=== PATIENT | female | born 1955 | race Caucasian/White ===

== ENCOUNTER 2021-01-28 19:37 | Inpatient (IN) ==
[2021-01-28] MEDS ORDERED: IOPAMIDOL 100 ML BOTTLE IV ONE (19:38)
[2021-01-28] MEDS ORDERED: ACETAMINOPHEN 325 MG TABLET PO ONE (19:53)
[2021-01-28] MEDS ORDERED: 0.9 % SODIUM CHLORIDE 500 ML IV ONE ×2 (19:53→21:24)
[2021-01-28] MEDS ORDERED: ALBUTEROL SULFATE 200 PUFF INHALER INH ONE (19:53)
--- NOTE | 2021-01-28 20:12 | XRay Report ---
CLINICAL INFORMATION: COVID COMPARISON: 01/21/2021 FINDINGS: Heart size is normal for technique. Mediastinum and pulmonary vessels are normal. Small solid aided right basilar infiltrate and effusion noted. IMPRESSION: Small right basilar infiltrate and small effusion. Interpreted and Authenticated by: Skip Kirk 01/28/21
--- NOTE | 2021-01-28 20:42 | Emergency Department Note ---
HPI General Chief complaint: Cold/Flu Symptoms Stated complaint: cold symptoms Time Seen by Provider: 01/28/21 19:46 Source: family Mode of arrival: wheelchair Limitations: no limitations History of Present Illness HPI Narrative: Narrative: Patient with a history of psoriatic arthritis on Humira and known COVID-19 since the end of December presenting to the ED with overall feeling worse for the past 1 to 2 days. Also some ear pain bilaterally right greater than left, and some increased shortness of breath. Has a history of sleep apnea but no known chronic lung disease, no chest pain. Does endorse fevers cough. No chest pain. No other acute complaints. Related Data Home Medications Medication Instructions Recorded Confirmed ascorbic acid (vitamin C) 500 mg 500 mg PO ONCE cap 12/24/18 01/28/21 capsule,extended release cholecalciferol (vitamin D3) 25 1,000 unit PO ONCE cap 12/24/18 01/28/21 mcg (1,000 unit) capsule duloxetine 60 mg capsule,delayed 60 mg PO QAM cap 12/24/18 01/28/21 release ferrous sulfate 325 mg (65 mg 325 mg PO ONCE tab 12/24/18 01/28/21 iron) tablet levothyroxine 150 mcg capsule 150 mcg PO QDAY cap 12/24/18 01/28/21 losartan 100 mg tablet 100 mg PO QDAY 12/24/18 01/28/21 metoprolol succinate 100 mg 100 mg PO QAM each 12/24/18 01/28/21 capsule sprinkle, ext. release 24 hr sitagliptin 50 mg tablet 50 mg PO BID tab 12/24/18 01/28/21 Saccharomyces boulardii 250 mg 250 mg PO BID 12/27/18 01/28/21 capsule diclofenac sodium 1 % topical gel 4 g TOPICAL QID 12/27/18 01/28/21 lidocaine 5 % topical patch 1 patch TOPICAL QDAY 12/27/18 01/28/21 liraglutide 0.6 mg/0.1 mL (18 mg/3 1.8 mg SUB-Q ONCE ml 12/27/18 01/28/21 mL) subcutaneous pen injector spironolactone 25 mg tablet 25 mg PO QDAY 12/27/18 01/28/21 metformin 1,000 mg tablet,extended 1,000 mg PO BID tab 12/26/19 09/10/21 release 24hr insulin glargine 100 unit/mL 45 unit SUB-Q BID ml 01/04/21 01/28/21 subcutaneous solution Previous Rx's Medication Instructions Recorded adalimumab 40 mg/0.4 mL See Rx Instructions .ROUTE 08/06/20 subcutaneous pen kit .COMPLEX #2 kit Allergies Allergy/AdvReac Type Severity Reaction Status Date / Time codeine Allergy Severe Muscle Pain Verified 01/12/21 15:51 etodolac Allergy Severe Muscle Pain Verified 01/12/21 15:51 morphine Allergy Severe Muscle Pain Verified 01/12/21 15:51 Penicillins Allergy Severe Muscle Pain Verified 01/12/21 15:51 Quinolones Allergy Severe Muscle Pain Verified 01/12/21 15:51 Sulfa (Sulfonamide Allergy Severe Muscle Pain Verified 01/12/21 15:51 Antibiotics) bupivacaine Allergy Unknown Other Verified 01/12/21 15:51 celecoxib [From Celebrex] Allergy Unknown Other Verified 01/12/21 15:51 ciprofloxacin [From Cipro] Allergy Unknown Other Verified 01/12/21 15:51 clindamycin Allergy Unknown Other Verified 01/12/21 15:51 hydromorphone Allergy Unknown Nausea Verified 01/12/21 15:51 moxifloxacin Allergy Unknown Other Verified 01/12/21 15:51 oxycodone [From Percocet] Allergy Unknown Nausea Verified 01/12/21 15:51 Tizanidine Allergy Unknown Nausea Verified 01/12/21 15:51 tramadol Allergy Unknown Nausea Verified 01/12/21 15:51 Review of Systems ROS ROS Narrative: Narrative: At least 10 systems reviewed and otherwise acutely negative except as in the HPI PFSH Narrative Patient History Narrative: Narrative: Medical/Surgical/Family History All Active Problems (Updated 01/29/21 @ 00:02 by Sergio Berger MD) Essential (primary) hypertension (Acute) Anemia, normocytic normochromic (Acute) Community acquired pneumonia (Acute) Uncontrolled type 2 diabetes mellitus with hyperglycemia (Acute) Lumbar back pain (Chronic) Type 2 diabetes mellitus (Chronic) Psoriatic arthropathy (Acute) Osteoarthritis (Chronic) Pain of multiple sites (Chronic) Other halfway (current) drug therapy (Chronic) Trigger middle finger of right hand (Chronic) Bronchitis (Chronic) Hypothyroidism (Chronic) Diabetes (Chronic) Carpal tunnel syndrome (Chronic) Heart burn (Chronic) Sleep apnea (Chronic) Multiple infections present (Chronic) Effusion of left wrist (Chronic) Effusion of right knee (Chronic) Sciatica, left side (Chronic) Crushing injury of right ring finger, initial encounter (Chronic) Spinal stenosis of lumbar region (Chronic) Lumbar spondylosis (Chronic) Cataracts, both eyes (Chronic) Encounter for long-term (current) use of high-risk medication (Acute) Polyarthralgia (Chronic) Back pain (Chronic) Trigger thumb of right hand (Chronic) Neck pain (Chronic) Hypertension (Chronic) Depression (Chronic) History of lumbar fusion (Chronic) Chronic pain (Chronic) Low back pain (Chronic) Lumbar radiculopathy (Chronic) Acute left lumbar radiculopathy (Chronic) Lumbar spondylosis with myelopathy (Chronic) Pneumonia (Acute) Acute hyperglycemia (Acute) Medical History (Updated 01/29/21 @ 00:02 by Sergio Berger MD) Back pain Bronchitis Carpal tunnel syndrome Cataracts, both eyes Chronic pain Crushing injury of right ring finger, initial encounter Depression Diabetes Effusion of left wrist Effusion of right knee Encounter for long-term (current) use of high-risk medication Heart burn Hypertension Hypothyroidism Low back pain Lumbar radiculopathy Lumbar spondylosis Lumbar spondylosis with myelopathy Multiple infections present Osteoarthritis Other terminal clerk (current) drug therapy Pain of multiple sites Knee, ankle, finger, knee, back, wrist, toes. Polyarthralgia Psoriatic arthropathy Sciatica, left side Sleep apnea Spinal stenosis of lumbar region Trigger middle finger of right hand Trigger thumb of right hand Surgical History History of cholecystectomy History of hand surgery Duputyrens release/2nd nodule excision 05/27/13. History of lumbar fusion L5-S1 decompression and fusion History of partial hysterectomy History of shoulder surgery right History of thyroidectomy History of tonsillectomy Family History Grandfather Hypertension Maternal Heart disease Hyperlipoproteinemia, Paul type I Diabetes Ankylosing spondylitis Rheumatoid arthritis Depression Sister Family history of thyroid problem Hypertension Social History Smoking Status: Never smoker Alcohol Intake Frequency: does not drink Substance Use: does not use Exam Narrative Narrative: Narrative: Constitutional: normally developed, overall ill-appearing. Head: Normocephalic, atraumatic, Eyes: No Icterus, ENT: Moist mucus membranes, TMs are clear and reflective bilaterally external auditory canals unremarkable does have a slight possible effusion to the right ear but does not appear infected Neck: Supple, no stridor Cardiac: Tachycardic heart sounds, palpable radial pulses, no peripheral edema Pulmonary: Normal respiratory effort. Breath sounds clear, coarse but no obvious wheeze, rhonchi, rales, Gastrointestinal: Abdomen soft, non-distended, non-tender, Musculoskeletal: No gross deformities, well perfused Skin: warm, dry Neuro: Alert and oriented. General Limitations: no limitations Course Vital Signs Vital signs: Vital Signs Temperature 38.4 C H 01/28/21 19:37 Pulse Rate 110 H 01/28/21 19:37 Respiratory Rate 18 01/28/21 19:37 Blood Pressure 140/74 01/28/21 19:37 Pulse Oximetry (%) 89 L 01/28/21 19:37 Temperature 37.7 C H 01/29/21 03:19 Pulse Rate 94 H 01/29/21 00:44 Respiratory Rate 20 01/29/21 03:19 Blood Pressure 141/69 01/29/21 03:19 Pulse Oximetry (%) 94 01/29/21 03:19 [facility] MDM Narrative Medical decision making narrative: Narrative:patient with recent or ongoing COVID-19 Now feeling worse she is mildly hypoxic in the upper 80s will place her on some oxygen, I do not appreciate any evidence of acute otitis media, also given her fever tachycardia shortness of breath and COVID-19 concern for possible PE as well as possible secondary bacterial pneumonia X-ray does show right lower lobe focal infiltrate will obtain CT PE as well patient was given some Tylenol IV fluids and a albuterol treatment Twelve-lead EKG shows sinus tachycardia 109 MA, QRS, QTc within normal, no acute ischemia noted CTA shows no central PE, distal branches poorly visualized, some possible gastric reflux or esophagitis, small right pleural effusion and atelectasis versus consolidation, also patchy bilateral groundglass opacity Labs show normal lactic acid, does have a leukocytosis of 18, Electrolytes show a sodium of 127 mostly due to a pseudohyponatremia secondary to hyperglycemia corrected sodium around 135 She is hyperglycemic in the 400s with a normal anion gap, normal bicarb no DKA Her rapid Covid test here is negative. And her pro-Burton is elevated 1.0 Presentation suspicious of a bacterial pneumonia for which she was started on R ocephin and azithromycin, reevaluation she is feeling better and is comfortable on nasal cannula, her initial tachycardia is resolved. I have spoken with the hospitalist who accepts admission at this time Lab Data Result diagrams: 01/28/21 20:23 01/28/21 20:23 Labs: Lab Results 01/28/21 01/28/21 01/28/21 Range/Units 20:19 20:23 20:23 WBC 18.8 H (4.5-11.0) K/mcL RBC 3.53 L (3.59-5.38) M/mcL Hgb 9.9 L (11.2-15.7) g/dL Hct 31.1 L (34.1-44.9) % MCV 88.1 (80.0-100.0) fL MCH 28.0 (26.0-34.0) pg MCHC 31.8 (31.0-36.0) g/dL RDW 12.9 (11.5-14.5) % Plt Count 289 (140-440) K/mcL MPV 11.3 H (7.4-10.4) fL Neut % (Auto) 83.7 H (38.0-78.0) % Lymph % (Auto) 8.0 L (15.5-49.0) % [place] % (Auto) 7.8 (1.0-12.0) % Eos % (Auto) 0.2 (0.0-7.0) % Baso % (Auto) 0.3 (0.0-2.0) % Lymph # (Auto) 1.50 (1.50-4.80) K/mcL [place] # (Auto) 1.47 H (0.10-0.90) K/mcL Eos # (Auto) 0.04 (0.00-0.70) K/mcL Baso # (Auto) 0.05 (0.00-0.30) K/mcL Absolute Neutrophils 15.69 H (1.80-8.00) K/mcL VBG Lactic Acid (0.5-2.0) mmol/L Sodium 127 L (133-145) mmol/L Potassium 4.7 (3.3-5.1) mmol/L Chloride 92 L (96-108) mmol/L Carbon Dioxide 22 (22-30) mmol/L Anion Gap 13.0 (8.0-16.0) BUN 18 (8-23) mg/dL Creatinine 1.0 (0.6-1.1) mg/dL POC Creatinine 0.8 (0.6-1.2) mg/dL GFR Calculation 59 Glucose 424 H (70-105) mg/dL Calcium 7.9 L (8.6-10.4) mg/dL Procalcitonin (<0.10) ng/mL 01/28/21 01/28/21 Range/Units 20:23 21:50 WBC (4.5-11.0) K/mcL RBC (3.59-5.38) M/mcL Hgb (11.2-15.7) g/dL Hct (34.1-44.9) % MCV (80.0-100.0) fL MCH (26.0-34.0) pg MCHC (31.0-36.0) g/dL RDW (11.5-14.5) % Plt Count (140-440) K/mcL MPV (7.4-10.4) fL Neut % (Auto) (38.0-78.0) % Lymph % (Auto) (15.5-49.0) % [place] % (Auto) (1.0-12.0) % Eos % (Auto) (0.0-7.0) % Baso % (Auto) (0.0-2.0) % Lymph # (Auto) (1.50-4.80) K/mcL [place] # (Auto) (0.10-0.90) K/mcL Eos # (Auto) (0.00-0.70) K/mcL Baso # (Auto) (0.00-0.30) K/mcL Absolute Neutrophils (1.80-8.00) K/mcL VBG Lactic Acid 0.9 (0.5-2.0) mmol/L Sodium (133-145) mmol/L Potassium (3.3-5.1) mmol/L Chloride (96-108) mmol/L Carbon Dioxide (22-30) mmol/L Anion Gap (8.0-16.0) BUN (8-23) mg/dL Creatinine (0.6-1.1) mg/dL POC Creatinine (0.6-1.2) mg/dL GFR Calculation Glucose (70-105) mg/dL Calcium (8.6-10.4) mg/dL Procalcitonin 1.01 H (<0.10) ng/mL ED POC Tests ED POC Tests: EMIR - SARS Antigen Negative Discharge Plan Patient/Caregiver Discharge Instructions Pt seen by PUSHER RUNNER/PA only: No Clinical Impression: Acute hyperglycemia Pneumonia Qualifiers: Pneumonia type: due to unspecified organism Laterality: right Lung location: lower lobe of lung Qualified Code(s): J18.9 - Pneumonia, unspecified organism Patient Disposition: Xfer As Inpt ([facility]) Condition: Fair Discharge Date/Time: 01/29/21 00:51 Discharge Comment: admitted to 125
[2021-01-28] MEDS ORDERED: cefTRIAXone 1 GM VIAL IV ONE (21:18)
[2021-01-28] MEDS ORDERED: AZITHROMYCIN 500 MG in DEXTROSE 5% IN WATER 250 ML IV ONE (21:18)
[2021-01-28 22:32] LABS: Basophils # (Auto) 0.05 K/mcL (0.00-0.30); Basophils % (Auto) 0.3 % (0.0-2.0); Eosinophils # (Auto) 0.04 K/mcL (0.00-0.70); Eosinophils % (Auto) 0.2 % (0.0-7.0); Hematocrit 31.1 % (34.1-44.9); Hemoglobin 9.9 g/dL (11.2-15.7); Mean Cell Volume 88.1 fL (80.0-100.0); Mean Corpuscular HGB Conc 31.8 g/dL (31.0-36.0); Mean Platelet Volume 11.3 fL (7.4-10.4); Monocytes # (Auto) 1.47 K/mcL (0.10-0.90); Monocytes % (Auto) 7.8 % (1.0-12.0); Neutrophils % (Auto) 83.7 % (38.0-78.0); Platelet Count 289 K/mcL (140-440); RBC 3.53 M/mcL (3.59-5.38); Red Cell Distribution Width 12.9 % (11.5-14.5); WBC 18.8 K/mcL (4.5-11.0)
[2021-01-28 22:35] LABS: Blood Urea Nitrogen 18 mg/dL (8-23); Calcium 7.9 mg/dL (8.6-10.4); Carbon Dioxide 22 mmol/L (22-30); Chloride 92 mmol/L (96-108); Glomerular Filtration Rate 59; Glucose 424 mg/dL (70-105)
[2021-01-28] MEDS ORDERED: INSULIN REGULAR, HUMAN 1 UNIT/0.01 ML UNIT SQ ONE (22:54)
--- NOTE | 2021-01-28 23:31 | Internal Med History&Physical ---
HPI History of Present Illness Patient information: Note initiated : 01/28/21 at 11:29 pm Service Date, if different from initiated Date: [] Patient: Asiya Addison 65 y/o F admitted on for cold symptoms. Chief Complaint: [community acquired pneumonia] History of present illness: Ms. Addison is a 65 year old F history of psoriatic arthritis, type 2 diabetes mellitus, essential hypertension, hypothyroidism, presenting with 3-day history of shortness of breath, productive cough with yellow sputum, and chest pain. She was being diagnosed with Covid pneumonia about a month ago. Over the past 3 days, she is committing of gradual onset, gradually worsening shortness of breath, productive cough with yellow sputum, and chest pain. The chest pain is located on her right lateral chest whenever she coughs. In addition, she is also committing of fever and chills with T-max 102 at home. She denies any muscle aches. She denies any general body weakness. Due to her symptoms, she presented to our ED for further evaluations this evening. Vital signs significant for oxygen saturations at 89% on room air. Labs significant for Covid Ad[place]a test negative. Leukocytosis with WBC 18.8. Serum glucose level 424 with bicarb of 22 and anion gap of 13. Serum lactic acid 0.9. Chest x-ray showing diffuse groundglass opacity bilateral lung consistent with history of recent Covid pneumonia with right basilar infiltrate, small. CT angiogram negative for any pulmonary embolism. Constitutional Constitutional: Present fever(s); Absent chills, excessive sweating, fatigue and weakness EENT Eyes: Absent blurry vision, change in vision, loss of vision and other visual disturbances Ears: Absent decreased hearing and tinnitus Nose, mouth and throat: Absent abnormal hearing, dry mouth, headache(s), nasal congestion and sore throat Cardiovascular Cardiovascular: Present chest pain (right sided, when coughing ); Absent chest pain at rest, edema, irregular heart rhythm and palpatations Respiratory Respiratory: Present cough, dyspnea and excessive phlegm production; Absent wheezing Gastrointestinal Gastrointestinal: Absent abdominal pain, constipation, diarrhea, nausea and vomiting Musculoskeletal Musculoskeletal: Absent back pain, deformity, limited range of motion, muscle cramps, muscle weakness and numbness Integumentary Integumentary: Absent lesions, rash and wounds Neurological Neurological: Absent focal weakness, headache(s) and numbness Psychiatric Psychiatric: Absent anxiety, depression and hallucinations PFSH PFSH All Active Problems (Updated 01/29/21 @ 00:02 by Sergio Berger MD) Essential (primary) hypertension (Acute) Anemia, normocytic normochromic (Acute) Community acquired pneumonia (Acute) Uncontrolled type 2 diabetes mellitus with hyperglycemia (Acute) Lumbar back pain (Chronic) Type 2 diabetes mellitus (Chronic) Psoriatic arthropathy (Acute) Osteoarthritis (Chronic) Pain of multiple sites (Chronic) Other penitentiary (current) drug therapy (Chronic) Trigger middle finger of right hand (Chronic) Bronchitis (Chronic) Hypothyroidism (Chronic) Diabetes (Chronic) Carpal tunnel syndrome (Chronic) Heart burn (Chronic) Sleep apnea (Chronic) Multiple infections present (Chronic) Effusion of left wrist (Chronic) Effusion of right knee (Chronic) Sciatica, left side (Chronic) Crushing injury of right ring finger, initial encounter (Chronic) Spinal stenosis of lumbar region (Chronic) Lumbar spondylosis (Chronic) Cataracts, both eyes (Chronic) Encounter for long-term (current) use of high-risk medication (Acute) Polyarthralgia (Chronic) Back pain (Chronic) Trigger thumb of right hand (Chronic) Neck pain (Chronic) Hypertension (Chronic) Depression (Chronic) History of lumbar fusion (Chronic) Chronic pain (Chronic) Low back pain (Chronic) Lumbar radiculopathy (Chronic) Acute left lumbar radiculopathy (Chronic) Lumbar spondylosis with myelopathy (Chronic) Pneumonia (Acute) Acute hyperglycemia (Acute) Medical History (Updated 01/29/21 @ 00:02 by Sergio Berger MD) Back pain Bronchitis Carpal tunnel syndrome Cataracts, both eyes Chronic pain Crushing injury of right ring finger, initial encounter Depression Diabetes Effusion of left wrist Effusion of right knee Encounter for long-term (current) use of high-risk medication Heart burn Hypertension Hypothyroidism Low back pain Lumbar radiculopathy Lumbar spondylosis Lumbar spondylosis with myelopathy Multiple infections present Osteoarthritis Other oil heaterman (current) drug therapy Pain of multiple sites Knee, ankle, finger, knee, back, wrist, toes. Polyarthralgia Psoriatic arthropathy Sciatica, left side Sleep apnea Spinal stenosis of lumbar region Trigger middle finger of right hand Trigger thumb of right hand Surgical History History of cholecystectomy History of hand surgery Duputyrens release/2nd nodule excision 1/7/14. History of lumbar fusion L5-S1 decompression and fusion History of partial hysterectomy History of shoulder surgery right History of thyroidectomy History of tonsillectomy Family History Grandfather Hypertension Maternal Heart disease Hyperlipoproteinemia, Paul type I Diabetes Ankylosing spondylitis Rheumatoid arthritis Depression Sister Family history of thyroid problem Hypertension Social History marital status: education level: college occupational status: retired alcohol intake frequency: does not drink substance use type: does not use MEDS/ALLERGIES Home Medications and Allergies Home Medications Medication Instructions Recorded Confirmed Type ascorbic acid (vitamin C) 500 mg 500 mg PO ONCE cap 12/24/18 01/28/21 History capsule,extended release cholecalciferol (vitamin D3) 25 1,000 unit PO ONCE cap 12/24/18 01/28/21 Histor y mcg (1,000 unit) capsule duloxetine 60 mg capsule,delayed 60 mg PO QAM cap 12/24/18 01/28/21 History release ferrous sulfate 325 mg (65 mg 325 mg PO ONCE tab 12/24/18 01/28/21 History iron) tablet levothyroxine 150 mcg capsule 150 mcg PO QDAY cap 12/24/18 01/28/21 History losartan 100 mg tablet 100 mg PO QDAY 12/24/18 01/28/21 History metoprolol succinate 100 mg 100 mg PO QAM each 12/24/18 01/28/21 History capsule sprinkle, ext. release 24 hr sitagliptin 50 mg tablet 50 mg PO BID tab 12/24/18 01/28/21 History Saccharomyces boulardii 250 mg 250 mg PO BID 12/27/18 01/28/21 History capsule diclofenac sodium 1 % topical gel 4 g TOPICAL QID 12/27/18 01/28/21 History lidocaine 5 % topical patch 1 patch TOPICAL QDAY 12/27/18 01/28/21 History liraglutide 0.6 mg/0.1 mL (18 mg/3 1.8 mg SUB-Q ONCE ml 12/27/18 01/28/21 History mL) subcutaneous pen injector spironolactone 25 mg tablet 25 mg PO QDAY 12/27/18 01/28/21 History metformin 1,000 mg tablet,extended 1,000 mg PO BID tab 05/15/19 01/28/21 History release 24hr adalimumab 40 mg/0.4 mL See Rx Instructions .ROUTE 08/06/20 01/28/21 Rx subcutaneous pen kit .COMPLEX #2 kit insulin glargine 100 unit/mL 45 unit SUB-Q BID ml 01/04/21 01/28/21 History subcutaneous solution Allergies Allergy/AdvReac Type Severity Reaction Status Date / Time codeine Allergy Severe Muscle Pain Verified 01/12/21 15:51 etodolac Allergy Severe Muscle Pain Verified 01/12/21 15:51 morphine Allergy Severe Muscle Pain Verified 01/12/21 15:51 Penicillins Allergy Severe Muscle Pain Verified 01/12/21 15:51 Quinolones Allergy Severe Muscle Pain Verified 01/12/21 15:51 Sulfa (Sulfonamide Allergy Severe Muscle Pain Verified 01/12/21 15:51 Antibiotics) bupivacaine Allergy Unknown Other Verified 01/12/21 15:51 celecoxib [From Celebrex] Allergy Unknown Other Verified 01/12/21 15:51 ciprofloxacin [From Cipro] Allergy Unknown Other Verified 01/12/21 15:51 clindamycin Allergy Unknown Other Verified 01/12/21 15:51 hydromorphone Allergy Unknown Nausea Verified 01/12/21 15:51 moxifloxacin Allergy Unknown Other Verified 01/12/21 15:51 oxycodone [From Percocet] Allergy Unknown Nausea Verified 01/12/21 15:51 Tizanidine Allergy Unknown Nausea Verified 01/12/21 15:51 tramadol Allergy Unknown Nausea Verified 01/12/21 15:51 EXAM Constitutional Vitals: Temp Pulse Resp BP Pulse Ox 38.3 C H 94 H 18 130/64 91 01/28/21 21:47 01/28/21 23:24 01/28/21 19:37 01/28/21 23:24 01/28/21 23:24 General appearance: cooperative, mild distress and obese Head Head exam: Present atraumatic and normocephalic Eye Eye exam: Present EOMI and PERRL ENT ENT exam: Present mucous membranes moist, normal exam and normal external ear exam Additional comments: Nasal cannula in place Neck Neck exam: Present normal inspection; Absent lymphadenopathy, tenderness and thyromegaly Respiratory Respiratory exam: Present decreased breath sounds and rhonchi; Absent accessory muscle use, respiratory distress and wheezes Cardiovascular Cardiovascular exam: Present normal rate and rhythm; Absent JVD GI/Abdominal GI/Abdominal exam: Present normal bowel sounds and soft; Absent organomegaly and tenderness Extremities Exam Extremities exam: Present full ROM, normal capillary refill and normal inspection; Absent tenderness Neurological Exam Neurological exam: Present alert, CN II-XII intact and oriented X3; Absent motor sensory deficit Psychiatric Psychiatric exam: Present normal affect and normal mood; Absent anxious and depressed Skin Skin exam: Present dry and intact DATA Data Completed and Pending Labs: Labs from last 24 hours 01/28/21 01/28/21 01/28/21 21:50 20:23 20:23 WBC 18.8 H RBC 3.53 L Hgb 9.9 L Hct 31.1 L MCV 88.1 MCH 28.0 MCHC 31.8 RDW 12.9 Plt Count 289 MPV 11.3 H Neut % (Auto) 83.7 H Lymph % (Auto) 8.0 L [place] % (Auto) 7.8 Eos % (Auto) 0.2 Baso % (Auto) 0.3 Lymph # (Auto) 1.50 [place] # (Auto) 1.47 H Eos # (Auto) 0.04 Baso # (Auto) 0.05 Absolute Neutrophils 15.69 H VBG Lactic Acid 0.9 Sodium 127 L Potassium 4.7 Chloride 92 L Carbon Dioxide 22 Anion Gap 13.0 BUN 18 Creatinine 1.0 POC Creatinine GFR Calculation 59 Glucose 424 H Calcium 7.9 L 01/28/21 20:19 WBC RBC Hgb Hct MCV MCH MCHC RDW Plt Count MPV Neut % (Auto) Lymph % (Auto) [place] % (Auto) Eos % (Auto) Baso % (Auto) Lymph # (Auto) [place] # (Auto) Eos # (Auto) Baso # (Auto) Absolute Neutrophils VBG Lactic Acid Sodium Potassium Chloride Carbon Dioxide Anion Gap BUN Creatinine POC Creatinine 0.8 GFR Calculation Glucose Calcium A/P Assessment and plan (1) Uncontrolled type 2 diabetes mellitus with hyperglycemia: Status: Acute (2) Community acquired pneumonia: Status: Acute (3) Anemia, normocytic normochromic: Status: Acute (4) Hypothyroidism: Status: Chronic (5) Essential (primary) hypertension: Status: Acute (6) Depression: Status: Chronic (7) Psoriatic arthropathy: Status: Acute Narrative A/P Narrative: Assessment and Plans: 1. Community acquired pneumonia: DDx: CoVID pneumonia Admit to inpatient med surg CoVID PCR to rule out CoVID pneumonia Isolation protocol airborne and contract until CoVID PCR negative Serial lactic acid Serum procalcitonin level Blood culture cbc w/ auto diff in the AM to trend WBC Rocephin Zithromax Tylenol PRN fever Ibuprofen PRN mild pain Morphine IV PRN severe pain DuoNEB NEB q4hr PRN wheezing Robitussin DM PRN cough Supplemental oxygen therapy titrate to achieve spo2>=92% 2. Uncontrolled T2DM with hyperglycemia: HgA1c Hold Metformin, okay to give other oral hypoglycemics Lantus High dose Insulin Lispro AC HS Accu Chek AC HS Hypoglycemia prtocol Diabetic diet 3. Essential HTN: Metoprolol Losartan Aldactone 4. Hypothyroidism: Continue oral thyroid replacement therapy 5. Psoriatic arthritis: [facility] outpatient 6. Depression: Continue Cymbalta 7. Anemia, normocytic normochromic: cbc w/ auto diff in the AM to trend H/H; transfuse pRBC if hemoglobin<7.0, active bleeding, or symptomatic GI ppx: not currently indicated DVT ppx: Lovenox Code status: Full Prognosis: guarded Disposition: inpatient med surg Time Spent With Patient Time: Total time spent is greater than 50% in coordination of care (as documented) at patient's floor/unit and/or counseling patient: Total time spent with greater than 50% in coordination of care (as documented) at patient's floor/unit and/or counseling patient:: Greater than 35 minutes
[2021-01-28] MEDS ORDERED: [UNRECOGNIZED DRUG - OTHER] SUB-Q SCH (23:45)
[2021-01-28] MEDS ORDERED: LIRAGLUTIDE SUB-Q SCH (23:45)
[2021-01-28] MEDS ORDERED: ASCORBIC ACID 500 MG PO SCH (23:45)
[2021-01-28] MEDS ORDERED: [UNRECOGNIZED DRUG - OTHER] PO SCH (23:45)
[2021-01-28] MEDS ORDERED: FERROUS SULFATE 325 MG TABLET PO SCH (23:45)
[2021-01-29] MEDS ORDERED: ONDANSETRON 4 MG/2 ML VIAL IV PRN (00:56)
[2021-01-29] MEDS ORDERED: DEXTROSE 50% 50 ML VIAL IV PRN (00:56)
[2021-01-29] MEDS ORDERED: IOPAMIDOL 100 ML BOTTLE IV ONE (00:56)
[2021-01-29] MEDS ORDERED: CHOLECALCIFEROL 1000 UNIT PO SCH (00:56)
[2021-01-29] MEDS ORDERED: cefTRIAXone 1 GM in DEXTROSE 5% IN WATER 50 ML IV SCH (00:56)
[2021-01-29] MEDS ORDERED: ZOLPIDEM 5 MG TABLET PO PRN (00:56)
[2021-01-29] MEDS ORDERED: LIRAGLUTIDE 1.8 MG SUB-Q SCH (00:56)
[2021-01-29] MEDS ORDERED: morphine 4 MG/ML VIAL IV PRN (00:56)
[2021-01-29] MEDS ORDERED: ACETAMINOPHEN 325 MG TABLET PO PRN (00:56)
[2021-01-29] MEDS ORDERED: AZITHROMYCIN 500 MG in DEXTROSE 5% IN WATER 250 ML IV SCH (00:56)
[2021-01-29] MEDS ORDERED: ASCORBIC ACID 500 MG PO SCH (00:56)
[2021-01-29] MEDS ORDERED: FERROUS SULFATE 325 MG TABLET PO SCH (00:56)
[2021-01-29] MEDS ORDERED: IBUPROFEN 600 MG TABLET PO PRN (00:56)
[2021-01-29] MEDS ORDERED: IPRATROPIUM/ALBUTEROL 3 ML AMPUL.NEB NEB PRN (00:56)
[2021-01-29] MEDS ORDERED: DEXTROSE 31 GM ORAL.SUSP PO PRN (00:56)
[2021-01-29] MEDS ORDERED: guaiFENesin/DEXTROMETHORPHAN ORAL SOL PO PRN (00:56)
[2021-01-29] MEDS ORDERED: INSULIN LISPRO 1 UNIT/0.01 ML UNIT SQ ONE ×2 (01:30→01:38)
[2021-01-29] MEDS ORDERED: guaiFENesin/DEXTROMETHORPHAN ORAL SOL ONE (02:59)
[2021-01-29] MEDS: 0.9 % SODIUM CHLORIDE 1,000 ML IV SCH ×3 (03:17→21:06)
[2021-01-29] MEDS: 0.9 % SODIUM CHLORIDE 10 ML SYRINGE IV SCH ×3 (04:20→21:01)
[2021-01-29] MEDS ORDERED: ACETAMINOPHEN 325 MG TABLET PO ONE (04:47)
[2021-01-29 06:52] LABS: Basophils # (Auto) 0.06 K/mcL (0.00-0.30); Basophils % (Auto) 0.3 % (0.0-2.0); Eosinophils % (Auto) 0.6 % (0.0-7.0); Hematocrit 29.4 % (34.1-44.9); Hemoglobin 9.2 g/dL (11.2-15.7); Lymphocytes # (Auto) 1.39 K/mcL (1.50-4.80); Lymphocytes % (Auto) 7.8 % (15.5-49.0); Mean Corpuscular HGB Conc 31.3 g/dL (31.0-36.0); Mean Platelet Volume 10.7 fL (7.4-10.4); Monocytes # (Auto) 1.34 K/mcL (0.10-0.90); Monocytes % (Auto) 7.5 % (1.0-12.0); Neutrophils % (Auto) 83.8 % (38.0-78.0); Platelet Count 287 K/mcL (140-440); RBC 3.34 M/mcL (3.59-5.38); Red Cell Distribution Width 12.9 % (11.5-14.5); WBC 17.8 K/mcL (4.5-11.0)
--- NOTE | 2021-01-29 07:48 | Cat Scan Report ---
History: COVID, worsening dyspnea with tachycardia, right lower lobe pneumonia seen on chest x-ray TECHNIQUE: The chest was imaged following injection of intravenous nonionic contrast. Sagittal, coronal and axial MIPS images were created. The radiation exposure was limited using dose reduction technology. FINDINGS: The pulmonary arteries are normal with no evidence of pulmonary emboli. There is moderate consolidation of the basilar segments of the right lower lobe with multiple air bronchograms. In The medial basal segment of the right lower lobe there is a 1.7 x 1.9 cm cavity with an air-fluid level. There are bands of atelectasis in the superior segment of the right lower lobe as well as the right middle lobe and right upper lobe. Small peripheral groundglass alveolar opacities are present in the left lung as well as right upper and right middle lobe. Above the minor fissure laterally in the right upper lobe there is a 5 mm noncalcified well-circumscribed, oval nodule seen on axial image #51. There are several enlarged lymph nodes in mediastinum and both kerry. There is a cluster of matted lymph nodes nodes in the subcarinal space which measure 3.6 x 4.0 cm. A small hiatus hernia is present. Small right-sided pleural effusion is noted. There is no pneumothorax. The heart is normal in size and contour. Aorta is normal in caliber. There are few calcified plaques in the aorta is relative sparing of the coronary arteries. Fatty infiltration is present in the liver. The gallbladder has been removed. The bile ducts are prominent but within upper limits of normal. IMPRESSION: Moderate Pneumonia/atelectasis in the right lower lobe 1.7 x 1.9 cm cavity in the medial basal segment right lower lobe which could be an infected bleb or possibly small lung abscess. No evidence of pulmonary emboli Hilar and mediastinal adenopathy 5 mm right upper lobe nodule Bands of atelectasis in both lungs Mild groundglass alveolar opacities in both lungs which could be due to infection Interpreted and Authenticated by: Imtiaz Tucker 01/29/21
[2021-01-29] MEDS: FERROUS SULFATE 325 MG TABLET PO SCH (08:53)
[2021-01-29] MEDS: VITAMIN D3 1,000 UNIT TABLET PO SCH (08:53)
[2021-01-29] MEDS: sitaGLIPtin 50 MG TABLET PO SCH ×2 (08:53→20:09)
[2021-01-29] MEDS: DOCUSATE SODIUM 100 MG CAPSULE PO SCH ×2 (08:53→20:10)
[2021-01-29] MEDS: ASCORBIC ACID 500 MG TABLET PO SCH (08:54)
[2021-01-29] MEDS: DULoxetine 30 MG CAPSULE PO SCH (08:54)
[2021-01-29] MEDS: LACTOBACILLUS 1 CAPSULE PO SCH ×2 (08:54→20:10)
[2021-01-29] MEDS: INSULIN LISPRO 1 UNIT/0.01 ML UNIT SQ SCH ×4 (08:59→20:41)
[2021-01-29] MEDS ORDERED: LEVOTHYROXINE 150 MCG PO SCH (09:00)
[2021-01-29] MEDS ORDERED: SACCHAROMYCES BOULARDII PO SCH (09:00)
[2021-01-29] MEDS ORDERED: INSULIN GLARGINE, HUMAN 1 UNIT/0.01 ML SQ SCH (09:00)
[2021-01-29] MEDS ORDERED: SPIRONOLACTONE 25 MG TABLET PO SCH (09:00)
[2021-01-29] MEDS ORDERED: ENOXAPARIN 40 MG/0.4 ML SYRINGE SQ SCH ×2 (09:00)
[2021-01-29] MEDS ORDERED: LIDOCAINE PATCH TOPICAL SCH (09:00)
[2021-01-29] MEDS ORDERED: NON FORMULARY MEDICATION 1 DOSE MISCELL (Losartan 100 mg tablet) PO SCH (09:00)
[2021-01-29] MEDS ORDERED: DICLOFENAC SODIUM 1% TOPICAL SCH (09:00)
[2021-01-29] MEDS ORDERED: sitaGLIPtin 50 MG TABLET PO SCH (09:00)
[2021-01-29] MEDS: SPIRONOLACTONE 25 MG TABLET PO SCH (09:07)
[2021-01-29] MEDS: LOSARTAN 50 MG TABLET PO SCH (09:07)
[2021-01-29] MEDS: METOPROLOL SUCCINATE 50 MG TAB.XL.24H PO SCH (09:07)
[2021-01-29] MEDS: INSULIN GLARGINE, HUMAN 1 UNIT/0.01 ML SQ SCH ×2 (09:09→20:41)
[2021-01-29] MEDS: DICLOFENAC SODIUM TOPICAL SCH ×4 (09:10→20:09)
[2021-01-29] MEDS: LIRAGLUTIDE 1.8 MG SUB-Q SCH (09:10)
[2021-01-29] MEDS: cefTRIAXone 1 GM VIAL IV SCH (09:14)
[2021-01-29] MEDS: LIDOCAINE PATCH TOPICAL SCH ×2 (09:21→17:45)
[2021-01-29 09:52] LABS: Blood Urea Nitrogen 15 mg/dL (8-23); Calcium 7.6 mg/dL (8.6-10.4); Carbon Dioxide 22 mmol/L (22-30); Chloride 95 mmol/L (96-108); Glomerular Filtration Rate 67; Glucose 288 mg/dL (70-105)
[2021-01-29] MEDS ORDERED: REMDESIVIR 200 MG in 0.9 % SODIUM CHLORIDE 250 ML IV ONE (11:00)
--- NOTE | 2021-01-29 11:24 | Internal Med Progress Note ---
SUBJECTIVE Subjective Patient information: Note initiated : 01/29/21 at 11:19 am Service Date, if different from initiated Date: [] Patient: Asiya Addison a 65 y/o F admitted on 01/29/21 for cold symptoms. Chief Complaint: [CAP and CoVID] Interval history: History of present illness: Ms. Addison is a 65 year old F history of psoriatic arthritis, type 2 diabetes mellitus, essential hypertension, hypothyroidism, presenting with 3-day history of shortness of breath, productive cough with yellow sputum, and chest pain. She was being diagnosed with Covid pneumonia about a month ago. Over the past 3 days, she is committing of gradual onset, gradually worsening shortness of breath, productive cough with yellow sputum, and chest pain. The chest pain is located on her right lateral chest whenever she coughs. In addition, she is also committing of fever and chills with T-max 102 at home. She denies any muscle aches. She denies any general body weakness. Due to her symptoms, she presented to our ED for further evaluations this evening. Vital signs significant for oxygen saturations at 89% on room air. Labs significant for Covid Adwoa test negative. Leukocytosis with WBC 18.8. Serum glucose level 424 with bicarb of 22 and anion gap of 13. Serum lactic acid 0.9. Chest x-ray showing diffuse groundglass opacity bilateral lung consistent with history of recent Covid pneumonia with right basilar infiltrate, small. CT angiogram negative for any pulmonary embolism. 01/29: Low grade fever Tmax 37.7. Been on oxygen up to 4L/min overnight. CoVID PCR positive. c/o moderate SOB. c/o productive cough with yellow sputum. Denies chest pain. Denies wheezing. Denies fever or chills. Constitutional Vitals: Vital Signs Temp Pulse Resp BP Pulse Ox 36.1 C 103 H 16 118/60 92 01/29/21 08:00 01/29/21 08:00 01/29/21 08:00 01/29/21 08:00 01/29/21 08:00 Period Temp Pulse Resp BP Sys/Schroeder Pulse Ox Last 24 Hr 36.1 C-38.4 C 90-110 16-22 110-155/40-93 87-94 Intake and Output 01/28/21 01/29/21 01/29/21 21:59 05:59 13:59 Intake Total 500 950 Output Total 300 Balance 500 650 Weight 92.986 kg 92.986 kg Intake & Output: Intake & Output 01/28/21 01/29/21 01/29/21 21:59 05:59 13:59 Intake Total 500 950 Output Total 300 Balance 500 650 Weight 92.986 kg 92.986 kg Intake: IV 500 750 Sodium Chloride 0.9% 500 ml @ 500 500 Wide Open IV BOLUS ONE Rx#: [id number] Zithromax 500 mg In Dextrose 5% 250 in Water 250 ml @ 250 mls/hr IV ONCE ONE Rx#:[id number] Oral 200 Output: Void Amount 300 Other: Urine Color Dark Yellow General appearance: cooperative and no acute distress Head Head exam: Present atraumatic and normocephalic Eye Eye exam: Present EOMI and PERRL ENT ENT exam: Present mucous membranes moist, normal exam and normal external ear exam Additional comments: Nasal cannula Neck Neck exam: Present normal inspection; Absent lymphadenopathy, tenderness and thyromegaly Respiratory Respiratory exam: Present rhonchi; Absent accessory muscle use, respiratory distress and wheezes Cardiovascular Cardiovascular exam: Present normal rate and rhythm; Absent JVD GI/Abdominal GI/Abdominal exam: Present normal bowel sounds and soft; Absent organomegaly and tenderness Extremities Exam Extremities exam: Present full ROM, normal capillary refill and normal inspection; Absent tenderness Neurological Exam Neurological exam: Present alert, CN II-XII intact and oriented X3; Absent motor sensory deficit Psychiatric Psychiatric exam: Present normal affect and normal mood; Absent anxious and dep ressed Skin Skin exam: Present dry and intact OBJ DATA Labs CBC & Chem 7: 01/29/21 06:05 01/29/21 06:05 Labs: Abnormal Lab Results 01/29/21 01/29/21 01/28/21 06:05 06:05 20:23 WBC 17.8 H RBC 3.34 L Hgb 9.2 L Hct 29.4 L MPV 10.7 H Neut % (Auto) 83.8 H Lymph % (Auto) 7.8 L Lymph # (Auto) 1.39 L [place] # (Auto) 1.34 H Absolute Neutrophils 14.93 H Sodium 131 L Chloride 95 L Glucose 288 H Calcium 7.6 L Procalcitonin 1.01 H 01/28/21 01/28/21 20:23 20:23 WBC 18.8 H RBC 3.53 L Hgb 9.9 L Hct 31.1 L MPV 11.3 H Neut % (Auto) 83.7 H Lymph % (Auto) 8.0 L Lymph # (Auto) [place] # (Auto) 1.47 H Absolute Neutrophils 15.69 H Sodium 127 L Chloride 92 L Glucose 424 H Calcium 7.9 L Procalcitonin Meds: Medications Acetaminophen (Acetaminophen 325 Mg Tablet) 650 mg PO Q6HP PRN; Protocol PRN Reason: Per Pain Protocol/Fever > 101 Last Admin: 01/29/21 04:50 Dose: 650 mg Documented by: Albuterol/Ipratropium (Ipratropium/Albuterol 3 Ml Ampul.Neb) 3 ml NEB Q4HRT PRN PRN Reason: Wheezing Ascorbic Acid (Ascorbic Acid 500 Mg Tablet) 500 mg PO DAILY [facility] Last Admin: 01/29/21 08:54 Dose: 500 mg Documented by: Ceftriaxone Sodium (Ceftriaxone 1 Gm Vial) 1 gm IV Q24H [facility] Last Admin: 01/29/21 09:14 Dose: 1 gm Documented by: Dexamethasone (Dexamethasone 10 Mg/Ml Vial) 6 mg IV DAILY [facility] Dextrose (Dextrose 50% 50 Ml Vial) 0 ml IV UD PRN PRN Reason: Hypoglycemia Diagnostic Test (Pha) (Accu-Chek 1 Each Strip) 1 each FS ACHS [facility] Last Admin: 01/29/21 08:46 Dose: 1 each Documented by: Docusate Sodium (Docusate Sodium 100 Mg Capsule) 100 mg PO BID [facility] Last Admin: 01/29/21 08:53 Dose: 100 mg Documented by: Duloxetine HCl (Duloxetine 30 Mg Capsule) 60 mg PO DAILY [facility] Last Admin: 01/29/21 08:54 Dose: 60 mg Documented by: Enoxaparin Sodium (Enoxaparin 40 Mg/0.4 Ml Syringe) 40 mg SQ BID [facility] Ferrous Sulfate (Ferrous Sulfate 325 Mg Tablet) 325 mg PO [facility] Last Admin: 01/29/21 08:53 Dose: 325 mg Documented by: Glucose (Dextrose 31 Gm Oral.Susp) 15 gm PO PRN PRN PRN Reason: Hypoglycemia Guaifenesin (Guaifenesin/Dextromethorphan Oral Nadege) 10 ml PO Q4HP PRN PRN Reason: Cough Sodium Chloride (Sodium Chloride 0.9%) 1,000 mls @ 100 mls/hr IV .Q10H [facility] Last Admin: 01/29/21 03:17 Dose: 100 mls/hr Documented by: Azithromycin 500 mg/ Dextrose 250 mls @ 250 mls/hr IV Q24H [facility]; Protocol Stop: 01/31/21 13:59 REMDESIVIR 200 mg/ Sodium (Chloride) 250 mls @ 500 mls/hr IV ONCE ONE Stop: 01/29/21 11:29 REMDESIVIR 100 mg/ Sodium (Chloride) 250 mls @ 500 mls/hr IV Q24H [facility] Stop: 02/02/21 11:29 Ibuprofen (Ibuprofen 600 Mg Tablet) 600 mg PO QIDP PRN; Protocol PRN Reason: Per Pain Protocol/Fever > 101 Insulin Glargine (Insulin Glargine, Human 1 Unit/0.01 Ml) 45 unit SQ BID [facility] Last Admin: 01/29/21 09:09 Dose: 45 units Documented by: Insulin Human Lispro (Insulin Lispro 1 Unit/0.01 Ml Unit) 0 unit SQ ACHS [facility]; Protocol Last Admin: 01/29/21 08:59 Dose: 15 units Documented by: Lactobacillus Rhamnosus (Lactobacillus 1 Capsule) 1 cap PO BID [facility] Last Admin: 01/29/21 08:54 Dose: 1 cap Documented by: Levothyroxine Sodium (Levothyroxine 150 Mcg Tablet) 150 mcg PO QAMAC [facility] Lidocaine (Lidocaine Patch) 1 patch TOPICAL QDAY [facility] Last Admin: 01/29/21 09:21 Dose: Not Given Documented by: Losartan Potassium (Losartan 50 Mg Tablet) 100 mg PO DAILY [facility] Last Admin: 01/29/21 09:07 Dose: 100 mg Documented by: Metoprolol Succinate (Metoprolol Succinate 50 Mg Tab.Xl.24h) 100 mg PO DAILY [facility] Last Admin: 01/29/21 09:07 Dose: 100 mg Documented by: Morphine Sulfate (Morphine 4 Mg/Ml Vial) 4 mg IV Q4HP PRN; Protocol PRN Reason: Per Pain Protocol Ondansetron HCl (Ondansetron 4 Mg/2 Ml Vial) 4 mg IV Q6HP PRN PRN Reason: Nausea And Vomiting Diclofenac Sodium 4 (Gm Gel) 4 dose TOPICAL QID [facility] Last Admin: 01/29/21 09:10 Dose: Not Given Documented by: Liraglutide [Victoza (2-Sadi] 1.8 Mg Pen) 1 dose SUB-Q DAILY [facility] Last Admin: 01/29/21 09:10 Dose: Not Given Documented by: Senna (Sennosides 1 Tablet) 2 tab PO HS [facility] Sitagliptin Phosphate (Sitagliptin 50 Mg Tablet) 50 mg PO BID [facility] Last Admin: 01/29/21 08:53 Dose: 50 mg Documented by: Sodium Chloride (0.9 % Sodium Chloride 10 Ml Syringe) 10 ml IV Q8 [facility] Last Admin: 01/29/21 04:20 Dose: Not Given Documented by: Spironolactone (Spironolactone 25 Mg Tablet) 25 mg PO QDAY [facility] Last Admin: 01/29/21 09:07 Dose: 25 mg Documented by: Vitamin D (Vitamin D3 1,000 Unit Tablet) 1,000 unit PO DAILY [facility] Last Admin: 01/29/21 08:53 Dose: 1,000 unit Documented by: Zolpidem Tartrate (Zolpidem 5 Mg Tablet) 5 mg PO HSP PRN PRN Reason: Insomnia A/P Assessment and plan (1) Uncontrolled type 2 diabetes mellitus with hyperglycemia: Status: Acute (2) Community acquired pneumonia: Status: Acute (3) Anemia, normocytic normochromic: Status: Acute (4) Hypothyroidism: Status: Chronic (5) Essential (primary) hypertension: Status: Acute (6) Depression: Status: Chronic (7) Psoriatic arthropathy: Status: Acute (8) Pneumonia due to COVID-19 virus: Status: Acute Narrative A/P Narrative: Assessment and Plans: 1. Community acquired pneumonia: DDx: CoVID pneumonia Stays in inpatient med surg CoVID PCR to rule out CoVID pneumonia--->positive, see #8 Isolation protocol airborne and contract Serial lactic acid Serum procalcitonin level Blood culture, no growth to date cbc w/ auto diff in the AM to trend WBC Rocephin Zithromax Tylenol PRN fever Ibuprofen PRN mild pain Morphine IV PRN severe pain DuoNEB NEB q4hr PRN wheezing Robitussin DM PRN cough Supplemental oxygen therapy titrate to achieve spo2>=92% 2. Uncontrolled T2DM with hyperglycemia: HgA1c Hold Metformin, okay to give other oral hypoglycemics Lantus 45 unit SQ BID High dose Insulin Lispro AC HS Accu Chek AC HS Hypoglycemia prtocol Diabetic diet 3. Essential HTN: Metoprolol Losartan Aldactone 4. Hypothyroidism: Continue oral thyroid replacement therapy 5. Psoriatic arthritis: [facility] outpatient 6. Depression: Continue Cymbalta 7. Anemia, normocytic normochromic: cbc w/ auto diff in the AM to trend H/H; transfuse pRBC if hemoglobin<7.0, active bleeding, or symptomatic 8. CoVID pneumonia: Isolation protocol airborne and contract cbc w/ auto diff in the AM to trend WBC Inflammatory markers Supplemental oxygen therapy titrate to achieve spo2>=92% Remdesivir Dexamethasone Lovenox Tylenol PRN fever Ibuprofen PRN mild pain Robitussin DM PRN cough GI ppx: not currently indicated DVT ppx: Lovenox Code status: Full Prognosis: guarded Disposition: inpatient med surg Time Spent With Patient Time: Total time spent is greater than 50% in coordination of care (as documen herson) at patient's floor/unit and/or counseling patient: Total time spent with greater than 50% in coordination of care (as documented) at patient's floor/unit and/or counseling patient:: Greater than 35 minutes
[2021-01-29] MEDS: AZITHROMYCIN 500 MG in DEXTROSE 5% IN WATER 250 ML IV SCH (13:45)
[2021-01-29] MEDS: SENNOSIDES 1 TABLET PO SCH (20:10)
[2021-01-29] MEDS: ENOXAPARIN 40 MG/0.4 ML SYRINGE SQ SCH (20:11)
[2021-01-30] MEDS: 0.9 % SODIUM CHLORIDE 1,000 ML IV SCH ×3 (02:22→16:59)
[2021-01-30] MEDS: 0.9 % SODIUM CHLORIDE 10 ML SYRINGE IV SCH ×3 (04:23→20:54)
[2021-01-30 06:52] LABS: Basophils # (Auto) 0.05 K/mcL (0.00-0.30); Basophils % (Auto) 0.4 % (0.0-2.0); Eosinophils # (Auto) 0.19 K/mcL (0.00-0.70); Eosinophils % (Auto) 1.3 % (0.0-7.0); Hematocrit 26.6 % (34.1-44.9); Hemoglobin 8.1 g/dL (11.2-15.7); Lymphocytes # (Auto) 1.74 K/mcL (1.50-4.80); Lymphocytes % (Auto) 12.3 % (15.5-49.0); Mean Cell Volume 90.5 fL (80.0-100.0); Mean Corpuscular HGB Conc 30.5 g/dL (31.0-36.0); Mean Platelet Volume 10.6 fL (7.4-10.4); Monocytes # (Auto) 0.98 K/mcL (0.10-0.90); Monocytes % (Auto) 6.9 % (1.0-12.0); Neutrophils % (Auto) 79.1 % (38.0-78.0); Platelet Count 285 K/mcL (140-440); RBC 2.94 M/mcL (3.59-5.38); Red Cell Distribution Width 12.9 % (11.5-14.5); WBC 14.2 K/mcL (4.5-11.0)
[2021-01-30] MEDS: LIRAGLUTIDE 1.8 MG SUB-Q SCH (07:12)
[2021-01-30] MEDS: DICLOFENAC SODIUM TOPICAL SCH ×4 (07:12→20:54)
[2021-01-30 07:23] LABS: INR 1.3 (0.9-1.1); Prothrombin Time 16.5 sec (11.9-14.5)
[2021-01-30 07:28] LABS: Blood Urea Nitrogen 14 mg/dL (8-23); Calcium 7.3 mg/dL (8.6-10.4); Carbon Dioxide 24 mmol/L (22-30); Chloride 102 mmol/L (96-108); Glomerular Filtration Rate 77; Glucose 165 mg/dL (70-105)
[2021-01-30 07:35] LABS: C-Reactive Protein 33.1 mg/dL (0.03-0.80)
[2021-01-30] MEDS: cefTRIAXone 1 GM VIAL IV SCH (10:30)
[2021-01-30] MEDS: DEXAMETHASONE 10 MG/ML VIAL IV SCH (10:32)
[2021-01-30] MEDS: DULoxetine 30 MG CAPSULE PO SCH (10:36)
[2021-01-30] MEDS: FERROUS SULFATE 325 MG TABLET PO SCH (10:36)
[2021-01-30] MEDS: METOPROLOL SUCCINATE 50 MG TAB.XL.24H PO SCH (10:37)
[2021-01-30] MEDS: LACTOBACILLUS 1 CAPSULE PO SCH ×2 (10:38→20:51)
[2021-01-30] MEDS: LOSARTAN 50 MG TABLET PO SCH (10:38)
[2021-01-30] MEDS: SPIRONOLACTONE 25 MG TABLET PO SCH (10:39)
[2021-01-30] MEDS: DOCUSATE SODIUM 100 MG CAPSULE PO SCH ×2 (10:39→20:50)
[2021-01-30] MEDS: ASCORBIC ACID 500 MG TABLET PO SCH (10:39)
[2021-01-30] MEDS: sitaGLIPtin 50 MG TABLET PO SCH ×2 (10:39→20:51)
[2021-01-30] MEDS: VITAMIN D3 1,000 UNIT TABLET PO SCH (10:40)
[2021-01-30] MEDS: LEVOTHYROXINE 150 MCG TABLET PO SCH (10:40)
[2021-01-30] MEDS: AZITHROMYCIN 500 MG in DEXTROSE 5% IN WATER 250 ML IV SCH (10:41)
[2021-01-30] MEDS: INSULIN LISPRO 1 UNIT/0.01 ML UNIT SQ SCH ×4 (10:51→21:13)
--- NOTE | 2021-01-30 10:53 | Internal Med Progress Note ---
SUBJECTIVE Subjective Patient information: Note initiated : 01/30/21 at 10:51 am Service Date, if different from initiated Date: [] Patient: Asiya Addison a 65 y/o F admitted on 01/29/21 for cold symptoms. Chief Complaint: [CoVID pneumonia, community acquired pneumonia] Interval history: History of present illness: Ms. Addison is a 65 year old F hi story of psoriatic arthritis, type 2 diabetes mellitus, essential hypertension, hypothyroidism, presenting with 3-day history of shortness of breath, productive cough with yellow sputum, and chest pain. She was being diagnosed with Covid pneumonia about a month ago. Over the past 3 days, she is committing of gradual onset, gradually worsening shortness of breath, productive cough with yellow spu julian, and chest pain. The chest pain is located on her right lateral chest whenever she coughs. In addition, she is also committing of fever and chills with T-max 102 at home. She denies any muscle aches. She denies any general body weakness. Due to her symptoms, she presented to our ED for further evaluations this evening. Vital signs significant for oxygen saturations at 89% on room air. Labs significant for Covid Adwoa test negative. Leukocytosis with WBC 18.8. Serum glucose level 424 with bicarb of 22 and anion gap of 13. Serum lactic acid 0.9. Chest x-ray showing diffuse groundglass opacity bilateral lung consistent with history of recent Covid pneumonia with right basilar infiltrate, small. CT angiogram negative for any pulmonary embolism. 01/29: Low grade fever Tmax 37.7. Been on oxygen up to 4L/min overnight. CoVID PCR positive. c/o moderate SOB. c/o productive cough with yellow sputum. Denies chest pain. Denies wheezing. Denies fever or chills. 01/30: Afebrile overnight. Currently on 2L/min oxygen; was on CPAP overnight. c/o mild SOB. c/o productive cough with sputum production, color unknown. Denies chest pain. Denies wheezing. Denies fever or chills. Constitutional Vitals: Vital Signs Temp Pulse Resp BP Pulse Ox 37.1 C 86 16 118/55 93 01/30/21 07:13 01/30/21 07:13 01/30/21 07:13 01/30/21 07:13 01/30/21 07:13 Period Temp Pulse Resp BP Sys/Schroeder Pulse Ox Last 24 Hr 36.5 C-37.2 C 84-102 16-20 116-139/52-73 92-94 Intake and Output 01/29/21 01/30/21 01/30/21 21:59 05:59 13:59 Intake Total 550 1000 Output Total 625 350 800 Balance -75 650 -800 Weight 92.986 kg Intake & Output: Intake & Output 01/29/21 01/30/21 01/30/21 21:59 05:59 13:59 Intake Total 550 1000 Output Total 625 350 800 Balance -75 650 -800 Weight 92.986 kg Intake: IV 250 1000 Sodium Chloride 0.9% 1,000 ml @ 1000 100 mls/hr IV .Q10H PAULA Rx#: [id number] Zithromax 500 mg In Dextrose 5% 250 in Water 250 ml @ 250 mls/hr IV Q24H PAULA Rx#:[id number] Oral 300 Output: Void Amount 625 350 800 Other: Meal Lunch Percent of Meal Consumed 100% Feeding Ability Independent Urine Appearance Clear Clear Urine Color Dark Yellow Dark Yellow Urine Odor Normal General appearance: cooperative and no acute distress Head Head exam: Present atraumatic and normocephalic Eye Eye exam: Present EOMI and PERRL ENT ENT exam: Present mucous membranes moist, normal exam and normal external ear exam Additional comments: Nasal cannula in place Neck Neck exam: Present normal inspection; Absent lymphadenopathy, tenderness and thyromegaly Respiratory Respiratory exam: Present rhonchi; Absent accessory muscle use, respiratory distress and wheezes Cardiovascular Cardiovascular exam: Present normal rate and rhythm; Absent JVD GI/Abdominal GI/Abdominal exam: Present normal bowel sounds and soft; Absent organomegaly and tenderness Extremities Exam Extremities exam: Present full ROM, normal capillary refill and normal inspection; Absent tenderness Neurological Exam Neurological exam: Present alert, CN II-XII intact and oriented X3; Absent motor sensory deficit Psychiatric Psychiatric exam: Present normal affect and normal mood; Absent anxious and depressed Skin Skin exam: Present dry and intact OBJ DATA Labs CBC & Chem 7: 01/30/21 05:00 01/30/21 06:02 Labs: Abnormal Lab Results 01/30/21 01/30/21 01/30/21 06:02 06:02 06:02 WBC RBC Hgb Hct MCHC MPV Neut % (Auto) Lymph % (Auto) Lymph # (Auto) [place] # (Auto) Absolute Neutrophils PT 16.5 H INR 1.3 H Fibrinogen 1171 H D-Dimer 6.46 H Sodium Chloride Glucose 165 H Calcium 7.3 L Ferritin 2828.0 H C-Reactive Protein 33.10 H Procalcitonin 01/30/21 01/29/21 01/29/21 05:00 06:05 06:05 WBC 14.2 H 17.8 H RBC 2.94 L 3.34 L Hgb 8.1 L 9.2 L Hct 26.6 L 29.4 L MCHC 30.5 L MPV 10.6 H 10.7 H Neut % (Auto) 79.1 H 83.8 H Lymph % (Auto) 12.3 L 7.8 L Lymph # (Auto) 1.39 L [place] # (Auto) 0.98 H 1.34 H Absolute Neutrophils 11.23 H 14.93 H PT INR Fibrinogen D-Dimer Sodium 131 L Chloride 95 L Glucose 288 H Calcium 7.6 L Ferritin C-Reactive Protein Procalcitonin 01/28/21 01/28/21 01/28/21 20:23 20:23 20:23 WBC 18.8 H RBC 3.53 L Hgb 9.9 L Hct 31.1 L MCHC MPV 11.3 H Neut % (Auto) 83.7 H Lymph % (Auto) 8.0 L Lymph # (Auto) [place] # (Auto) 1.47 H Absolute Neutrophils 15.69 H PT INR Fibrinogen D-Dimer Sodium 127 L Chloride 92 L Glucose 424 H Calcium 7.9 L Ferritin C-Reactive Protein Procalcitonin 1.01 H Meds: Medications Acetaminophen (Acetaminophen 325 Mg Tablet) 650 mg PO Q6HP PRN; Protocol PRN Reason: Per Pain Protocol/Fever > 101 Last Admin: 01/29/21 04:50 Dose: 650 mg Documented by: Albuterol/Ipratropium (Ipratropium/Albuterol 3 Ml Ampul.Neb) 3 ml NEB Q4HRT PRN PRN Reason: Wheezing Ascorbic Acid (Ascorbic Acid 500 Mg Tablet) 500 mg PO DAILY [facility] Last Admin: 01/30/21 10:39 Dose: 500 mg Documented by: Ceftriaxone Sodium (Ceftriaxone 1 Gm Vial) 1 gm IV Q24H PAULA Last Admin: 01/30/21 10:30 Dose: 1 gm Documented by: Dexamethasone (Dexamethasone 10 Mg/Ml Vial) 6 mg IV DAILY [facility] Last Admin: 01/30/21 10:32 Dose: 6 mg Documented by: Dextrose (Dextrose 50% 50 Ml Vial) 0 ml IV UD PRN PRN Reason: Hypoglycemia Diagnostic Test (Pha) (Accu-Chek 1 Each Strip) 1 each FS ACHS [facility] Last Admin: 01/30/21 10:50 Dose: Not Given Documented by: Docusate Sodium (Docusate Sodium 100 Mg Capsule) 100 mg PO BID [facility] Last Admin: 01/30/21 10:39 Dose: 100 mg Documented by: Duloxetine HCl (Duloxetine 30 Mg Capsule) 60 mg PO DAILY [facility] Last Admin: 01/30/21 10:36 Dose: 60 mg Documented by: Enoxaparin Sodium (Enoxaparin 40 Mg/0.4 Ml Syringe) 40 mg SQ BID [facility] Last Admin: 01/29/21 20:11 Dose: 40 mg Documented by: Ferrous Sulfate (Ferrous Sulfate 325 Mg Tablet) 325 mg PO [facility] Last Admin: 01/30/21 10:36 Dose: 325 mg Documented by: Glucose (Dextrose 31 Gm Oral.Susp) 15 gm PO PRN PRN PRN Reason: Hypoglycemia Guaifenesin (Guaifenesin/Dextromethorphan Oral Nadege) 10 ml PO Q4HP PRN PRN Reason: Cough Last Admin: 01/29/21 20:14 Dose: 10 ml Documented by: Sodium Chloride (Sodium Chloride 0.9%) 1,000 mls @ 100 mls/hr IV .Q10H [facility] Last Admin: 01/30/21 02:22 Dose: 100 mls/hr Documented by: Azithromycin 500 mg/ Dextrose 250 mls @ 250 mls/hr IV Q24H [facility]; Protocol Stop: 01/31/21 13:59 Last Admin: 01/30/21 10:41 Dose: 250 mls/hr Documented by: REMDESIVIR 100 mg/ Sodium (Chloride) 250 mls @ 500 mls/hr IV Q24H [facility] Stop: 02/02/21 11:29 Ibuprofen (Ibuprofen 600 Mg Tablet) 600 mg PO QIDP PRN; Protocol PRN Reason: Per Pain Protocol/Fever > 101 Insulin Glargine (Insulin Glargine, Human 1 Unit/0.01 Ml) 45 unit SQ BID [facility] Last Admin: 01/29/21 20:41 Dose: 45 units Documented by: Insulin Human Lispro (Insulin Lispro 1 Unit/0.01 Ml Unit) 0 unit SQ [facility]; Protocol Last Admin: 01/29/21 20:41 Dose: 9 units Documented by: Lactobacillus Rhamnosus (Lactobacillus 1 Capsule) 1 cap PO BID [facility] Last Admin: 01/30/21 10:38 Dose: 1 cap Documented by: Levothyroxine Sodium (Levothyroxine 150 Mcg Tablet) 150 mcg PO QAMAC [facility] Last Admin: 01/30/21 10:40 Dose: 150 mcg Documented by: Lidocaine (Lidocaine Patch) 1 patch TOPICAL QDAY [facility] Last Admin: 01/29/21 17:45 Dose: 1 patch Documented by: Losartan Potassium (Losartan 50 Mg Tablet) 100 mg PO DAILY [facility] Last Admin: 01/30/21 10:38 Dose: 100 mg Documented by: Metoprolol Succinate (Metoprolol Succinate 50 Mg Tab.Xl.24h) 100 mg PO DAILY [facility] Last Admin: 01/30/21 10:37 Dose: 100 mg Documented by: Morphine Sulfate (Morphine 4 Mg/Ml Vial) 4 mg IV Q4HP PRN; Protocol PRN Reason: Per Pain Protocol Ondansetron HCl (Ondansetron 4 Mg/2 Ml Vial) 4 mg IV Q6HP PRN PRN Reason: Nausea And Vomiting Diclofenac Sodium 4 (Gm Gel) 4 dose TOPICAL QID [facility] Last Admin: 01/30/21 07:12 Dose: Not Given Documented by: Liraglutide [Victoza (2-Sadi] 1.8 Mg Pen) 1 dose SUB-Q DAILY [facility] Last Admin: 01/30/21 07:12 Dose: Not Given Documented by: Senna (Sennosides 1 Tablet) 2 tab PO HS [facility] Last Admin: 01/29/21 20:10 Dose: 2 tab Documented by: Sitagliptin Phosphate (Sitagliptin 50 Mg Tablet) 50 mg PO BID [facility] Last Admin: 01/30/21 10:39 Dose: 50 mg Documented by: Sodium Chloride (0.9 % Sodium Chloride 10 Ml Syringe) 10 ml IV Q8 [facility] Last Admin: 01/30/21 04:23 Dose: Not Given Documented by: Spironolactone (Spironolactone 25 Mg Tablet) 25 mg PO QDAY [facility] Last Admin: 01/30/21 10:39 Dose: 25 mg Documented by: Vitamin D (Vitamin D3 1,000 Unit Tablet) 1,000 unit PO DAILY [facility]ULA Last Admin: 01/30/21 10:40 Dose: 1,000 unit Documented by: Zolpidem Tartrate (Zolpidem 5 Mg Tablet) 5 mg PO HSP PRN PRN Reason: Insomnia A/P Assessment and plan (1) Uncontrolled type 2 diabetes mellitus with hyperglycemia: Status: Acute (2) Community acquired pneumonia: Status: Acute (3) Anemia, normocytic normochromic: Status: Acute (4) Hypothyroidism: Status: Chronic (5) Essential (primary) hypertension: Status: Acute (6) Depression: Status: Chronic (7) Psoriatic arthropathy: Status: Acute (8) Pneumonia due to COVID-19 virus: Status: Acute Narrative A/P Narrative: Assessment and Plans: 1. Community acquired pneumonia: DDx: CoVID pneumonia Stays in inpatient med surg CoVID PCR to rule out CoVID pneumonia--->positive, see #8 Isolation protocol airborne and contract Serial lactic acid Serum procalcitonin level Blood culture, no growth to date cbc w/ auto diff in the AM to trend WBC Rocephin Zithromax Tylenol PRN fever Ibuprofen PRN mild pain Morphine IV PRN severe pain DuoNEB NEB q4hr PRN wheezing Robitussin DM PRN cough Supplemental oxygen therapy titrate to achieve spo2>=92% 2. Uncontrolled T2DM with hyperglycemia: HgA1c Hold Metformin, okay to give other oral hypoglycemics Lantus 45 unit SQ BID High dose Insulin Lispro AC HS Accu Chek AC HS Hypoglycemia prtocol Diabetic diet 3. Essential HTN: Metoprolol Losartan Aldactone 4. Hypothyroidism: Continue oral thyroid replacement therapy 5. [facility] 6. Depression: Continue Cymbalta 7. Anemia, normocytic normochromic: cbc w/ auto diff in the AM to trend H/H; transfuse pRBC if hemoglobin<7.0, active bleeding, or symptomatic 8. CoVID pneumonia: Isolation protocol airborne and contract cbc w/ auto diff in the AM to trend WBC Inflammatory markers Supplemental oxygen therapy titrate to achieve spo2>=92% Remdesivir Dexamethasone Lovenox Tylenol PRN fever Ibuprofen PRN mild pain Robitussin DM PRN cough GI ppx: not currently indicated DVT ppx: Lovenox Code status: Full Prognosis: guarded Disposition: inpatient med surg Time Spent With Patient Time: Total time spent is greater than 50% in coordination of care (as documented) at patient's floor/unit and/or counseling patient:
[2021-01-30] MEDS: ENOXAPARIN 40 MG/0.4 ML SYRINGE SQ SCH ×2 (10:55→20:52)
[2021-01-30] MEDS: INSULIN GLARGINE, HUMAN 1 UNIT/0.01 ML SQ SCH ×2 (11:07→21:13)
[2021-01-30] MEDS: REMDESIVIR 100 MG in 0.9 % SODIUM CHLORIDE 250 ML IV SCH (13:07)
[2021-01-30] MEDS: LIDOCAINE PATCH TOPICAL SCH (16:59)
--- NOTE | 2021-01-30 18:51 | EKG ---
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
[2021-01-30] MEDS: SENNOSIDES 1 TABLET PO SCH (20:50)
[2021-01-31] MEDS: INSULIN LISPRO 1 UNIT/0.01 ML UNIT SQ SCH ×3 (02:26→13:16)
[2021-01-31] MEDS: 0.9 % SODIUM CHLORIDE 1,000 ML IV SCH ×2 (02:27→13:06)
[2021-01-31] MEDS: 0.9 % SODIUM CHLORIDE 10 ML SYRINGE IV SCH ×2 (04:09→13:07)
[2021-01-31 08:47] LABS: Blood Urea Nitrogen 19 mg/dL (8-23); Calcium 7.3 mg/dL (8.6-10.4); Carbon Dioxide 21 mmol/L (22-30); Chloride 101 mmol/L (96-108); Glomerular Filtration Rate 67; Glucose 170 mg/dL (70-105)
[2021-01-31 09:16] LABS: Basophils # (Auto) 0.03 K/mcL (0.00-0.30); Basophils % (Auto) 0.2 % (0.0-2.0); Eosinophils # (Auto) 0.05 K/mcL (0.00-0.70); Eosinophils % (Auto) 0.4 % (0.0-7.0); Hematocrit 28.4 % (34.1-44.9); Hemoglobin 8.6 g/dL (11.2-15.7); Lymphocytes # (Auto) 1.46 K/mcL (1.50-4.80); Lymphocytes % (Auto) 11.7 % (15.5-49.0); Mean Cell Volume 92.2 fL (80.0-100.0); Mean Corpuscular HGB Conc 30.3 g/dL (31.0-36.0); Mean Platelet Volume 10.8 fL (7.4-10.4); Monocytes # (Auto) 0.71 K/mcL (0.10-0.90); Monocytes % (Auto) 5.7 % (1.0-12.0); Platelet Count 357 K/mcL (140-440); RBC 3.08 M/mcL (3.59-5.38); Red Cell Distribution Width 13.1 % (11.5-14.5); WBC 12.4 K/mcL (4.5-11.0)
[2021-01-31] MEDS: SPIRONOLACTONE 25 MG TABLET PO SCH (10:08)
[2021-01-31] MEDS: LEVOTHYROXINE 150 MCG TABLET PO SCH (10:09)
[2021-01-31] MEDS: LOSARTAN 50 MG TABLET PO SCH (10:09)
[2021-01-31] MEDS: sitaGLIPtin 50 MG TABLET PO SCH (10:09)
[2021-01-31] MEDS: VITAMIN D3 1,000 UNIT TABLET PO SCH (10:09)
[2021-01-31] MEDS: ASCORBIC ACID 500 MG TABLET PO SCH (10:09)
[2021-01-31] MEDS: FERROUS SULFATE 325 MG TABLET PO SCH (10:09)
[2021-01-31] MEDS: METOPROLOL SUCCINATE 50 MG TAB.XL.24H PO SCH (10:09)
[2021-01-31] MEDS: LACTOBACILLUS 1 CAPSULE PO SCH (10:09)
[2021-01-31] MEDS: DOCUSATE SODIUM 100 MG CAPSULE PO SCH (10:09)
[2021-01-31] MEDS: DULoxetine 30 MG CAPSULE PO SCH (10:10)
[2021-01-31] MEDS: DEXAMETHASONE 10 MG/ML VIAL IV SCH (10:17)
[2021-01-31] MEDS: INSULIN GLARGINE, HUMAN 1 UNIT/0.01 ML SQ SCH (10:19)
[2021-01-31] MEDS: ENOXAPARIN 40 MG/0.4 ML SYRINGE SQ SCH (10:21)
[2021-01-31] MEDS: cefTRIAXone 1 GM VIAL IV SCH (10:24)
[2021-01-31] MEDS: LIRAGLUTIDE 1.8 MG SUB-Q SCH (10:25)
[2021-01-31] MEDS: AZITHROMYCIN 500 MG in DEXTROSE 5% IN WATER 250 ML IV SCH (10:25)
[2021-01-31] MEDS: DICLOFENAC SODIUM TOPICAL SCH ×2 (10:25→13:06)
--- NOTE | 2021-01-31 10:39 | Discharge Summary ---
Discharge Provider Provider Patient information: Note initiated : 01/31/21 at 10:35 am Service Date, if different from initiated Date: [] Patient: Asiya Addison 65 y/o F admitted on 01/29/21 for cold symptoms. Chief Complaint: [CoVID pneumonia] Date of admission: 01/29/21 00:51 Discharge date: 01/31/21 Primary care physician: Lalita Elder Consults: 01/28/21 22:54 Consult to Physician [CONS] Stat Comment: Consulting Provider: Sergio Berger Reason For Exam: Physician to Consult Discharge Meds Discharge Medications Home Medications ascorbic acid (vitamin C) 500 mg capsule,extended release 500 mg PO ONCE cap 12/24/18 [History Confirmed 01/28/21 Last Taken Unknown] cholecalciferol (vitamin D3) 25 mcg (1,000 unit) capsule 1,000 unit PO ONCE cap 12/24/18 [History Confirmed 01/28/21 Last Taken Unknown] duloxetine 60 mg capsule,delayed release 60 mg PO QAM cap 12/24/18 [History Confirmed 01/28/21 Last Taken Unknown] ferrous sulfate 325 mg (65 mg iron) tablet 325 mg PO ONCE tab 12/24/18 [History Confirmed 01/28/21 Last Taken Unknown] levothyroxine 150 mcg capsule 150 mcg PO QDAY cap 12/24/18 [History Confirmed 01/28/21 Last Taken Unknown] losartan 100 mg tablet 100 mg PO QDAY 12/24/18 [History Confirmed 01/28/21 Last Taken Unknown] metoprolol succinate 100 mg capsule sprinkle, ext. release 24 hr 100 mg PO QAM each 12/24/18 [History Confirmed 01/28/21 Last Taken Unknown] sitagliptin 50 mg tablet 50 mg PO BID tab 12/24/18 [History Confirmed 01/28/21 Last Taken Unknown] Saccharomyces boulardii 250 mg capsule 250 mg PO BID 12/27/18 [History Confirmed 01/28/21 Last Taken Unknown] diclofenac sodium 1 % topical gel 4 g TOPICAL QID 12/27/18 [History Confirmed 01/28/21 Last Taken Unknown] lidocaine 5 % topical patch 1 patch TOPICAL QDAY 12/27/18 [History Confirmed 01/28/21 Last Taken Unknown] liraglutide 0.6 mg/0.1 mL (18 mg/3 mL) subcutaneous pen injector 1.8 mg SUB-Q ONCE ml 12/27/18 [History Confirmed 01/28/21 Last Taken Unknown] spironolactone 25 mg tablet 25 mg PO QDAY 12/27/18 [History Confirmed 01/28/21 Last Taken Unknown] metformin 1,000 mg tablet,extended release 24hr 1,000 mg PO BID tab 05/15/19 [History Confirmed 01/28/21 Last Taken Unknown] adalimumab 40 mg/0.4 mL subcutaneous pen kit See Rx Instructions .ROUTE .COMPLEX #2 kit 08/06/20 [Rx Confirmed 01/28/21 Last Taken Unknown] insulin glargine 100 unit/mL subcutaneous solution 45 unit SUB-Q BID ml 01/04/21 [History Confirmed 01/28/21 Last Taken Unknown] dextromethorphan-guaifenesin [Robafen DM Cough] 10 ml PO Q4HP PRN #250 ml 01/31/21 [Rx Last Taken Unknown] levofloxacin 750 mg PO QDAY #2 tab 01/31/21 [Rx Last Taken Unknown] COURSE Hospital Course Hospital course: Patient was admitted on January 29, 2021 for Covid pneumonia. Supplemental oxygen's, remdesivir, dexamethasone, anticoagulations in terms of Lovenox were all provided as part of the standard Covid management. By day 3 hospitalizations, patient's oxygen requirements went down to 2 L/min, been afebrile for 24 hours, leukocytosis improving, and otherwise reached clinical stability. As such, the decision was made to discharge patient home with home oxygen prescribed, 2 weeks PCP appointment made for her, and all questions were answered prior to patient being physically discharged. Discharge diagnosis: CoVID pneumonia Time Spent with Patient Time attestation: Total time spent providing and/or coordinating discharge services: Patient was admitted on January 29, 2021 for Covid pneumonia. Supplemental oxygen's, remdesivir, dexamethasone, anticoagulations in terms of Lovenox were all provided as part of the standard Covid management. By day 3 hospitalizations, patient's oxygen requirements went down to 2 L/min, been afebrile for 24 hours, leukocytosis improving, and otherwise reached clinical stability. As such, the decision was made to discharge patient home with home oxygen prescribed, 2 weeks PCP appointment made for her, and all questions were answered prior to patient being physically discharged. EXAM Constitutional Vitals: Temp Pulse Resp BP Pulse Ox 37.1 C 70 16 122/61 95 01/31/21 07:08 01/31/21 07:08 01/31/21 07:08 01/31/21 07:08 01/31/21 07:08 General appearance: cooperative and no acute distress Head Head exam: Present atraumatic and normocephalic Eye Eye exam: Present EOMI and PERRL ENT ENT exam: Present mucous membranes moist, normal exam and normal external ear exam Additional comments: Nasal cannula in place Neck Neck exam: Present normal inspection; Absent lymphadenopathy, tenderness and thyromegaly Respiratory Respiratory exam: Present rhonchi; Absent accessory muscle use, respiratory distress and wheezes Cardiovascular Cardiovascular exam: Present normal rate and rhythm; Absent JVD GI/Abdominal GI/Abdominal exam: Present normal bowel sounds and soft; Absent organomegaly and tenderness Extremities Exam Extremities exam: Present full ROM, normal capillary refill and normal inspection; Absent tenderness Neurological Exam Neurological exam: Present alert, CN II-XII intact and oriented X3; Absent motor sensory deficit Psychiatric Psychiatric exam: Present normal affect and normal mood; Absent anxious and depressed Skin Skin exam: Present dry and intact Discharge Data Data Completed and Pending Labs on day of discharge: Labs from last 24 hours 01/31/21 01/31/21 05:58 05:58 WBC 12.4 H RBC 3.08 L Hgb 8.6 L Hct 28.4 L MCV 92.2 MCH 27.9 MCHC 30.3 L RDW 13.1 Plt Count 357 MPV 10.8 H Neut % (Auto) 82.0 H Lymph % (Auto) 11.7 L [place] % (Auto) 5.7 Eos % (Auto) 0.4 Baso % (Auto) 0.2 Lymph # (Auto) 1.46 L [place] # (Auto) 0.71 Eos # (Auto) 0.05 Baso # (Auto) 0.03 Absolute Neutrophils 10.18 H Sodium 135 Potassium 3.7 Chloride 101 Carbon Dioxide 21 L Anion Gap 13.0 BUN 19 Creatinine 0.9 GFR Calculation 67 Glucose 170 H Calcium 7.3 L Preliminary micro results at discharge 01/28/21 21:55 Blood Culture - Preliminary Blood 01/28/21 21:50 Blood Culture - Preliminary Blood Discharge Plan Patient/Caregiver Discharge Instructions Activity: increase activity as tolerated Diet: Consistent Carbohydrate Prescriptions: New dextromethorphan-guaifenesin [Robafen DM Cough] 10-100 mg/5 mL Liquid 10 ml PO Q4HP PRN (Reason: Cough) Qty: 250 RF: 0 levofloxacin 750 mg tablet 750 mg PO QDAY Qty: 2 RF: 0 Continued Humira(CF) Pen 40 mg/0.4 mL pen injector kit See Rx Instructions .ROUTE .COMPLEX Qty: 2 RF: 2 cholecalciferol (vitamin D3) 1,000 unit capsule 1,000 unit PO ONCE RF: 0 ascorbic acid (vitamin C) 500 mg capsule, extended release 500 mg PO ONCE RF: 0 ferrous sulfate 325 mg (65 mg iron) tablet 325 mg PO ONCE RF: 0 duloxetine [Cymbalta] 60 mg capsule,delayed release(DR/EC) 60 mg PO QAM RF: 0 metoprolol succinate 100 mg cap,sprinkle,ER 24hr dose pack 100 mg PO QAM RF: 0 levothyroxine 150 mcg capsule 150 mcg PO QDAY RF: 0 losartan 100 mg tablet 100 mg PO QDAY RF: 0 Januvia 50 mg tablet 50 mg PO BID RF: 0 metformin 1,000 mg tablet extended release 24hr 1,000 mg PO BID RF: 0 spironolactone 25 mg tablet 25 mg PO QDAY RF: 0 diclofenac sodium 1 % gel 4 g TOPICAL QID RF: 0 Victoza 2-Sadi 0.6 mg/0.1 mL (18 mg/3 mL) pen injector 1.8 mg SUB-Q ONCE RF: 0 lidocaine 5 % adhesive patch,medicated 1 patch TOPICAL QDAY RF: 0 Probiotic (S.boulardii) 250 mg capsule 250 mg PO BID RF: 0 Lantus U-100 Insulin 100 unit/mL solution 45 unit SUB-Q BID RF: 0 Follow Up Plan Follow up with: Lalita Elder MD [Primary Care Provider] - Patient Disposition: Home, Self-Care Prognosis: Fair Rehab Potential: Good I certify that the patient requires SNF services: No Overall status at discharge: patient is progressing back to baseline Discharge Orders: Discharge Order (Routine); Ordered 01/31/21 Ordered By: Sergio Berger
[2021-01-31] MEDS: REMDESIVIR 100 MG in 0.9 % SODIUM CHLORIDE 250 ML IV SCH (12:25)
[2021-01-31] MEDS: LIDOCAINE PATCH TOPICAL SCH (12:33)
== END 2021-01-31 16:35 | disposition home or self-care (01) | DRG 177 ==
LOC: ED 19:37 → MEDSUR 01-29 00:51
PROVIDERS: ADMIT Internal Medicine; ATTEND Internal Medicine